=== PATIENT | male | born 1955 | race Caucasian/White ===

== ENCOUNTER → 2023-07-23 13:03 | Outpatient (CLI) | payer OTHER, SELFPAY ==
[2023-07-23 13:32] LABS: Add Manual Diff / Slide Review NO; Basophils Absolute Auto 0 /uL (0-100); Basophils Percent Auto 0.6 % (0-2); Eosinophils Absolute Auto 200 /uL (0-450); Hematocrit 41.2 % (41-53); Hemoglobin 13.8 g/dL (13.5-17.5); Lymphocytes Absolute Auto 1100 /uL (1100-4500); Lymphocytes Percent Auto 19.8 % (25-40); Mean Corpuscular HGB Conc 33.5 % (30-36); Mean Corpuscular Hemoglobin 29.2 PG (26-34); Mean Corpuscular Volume 87.1 fL (80-100); Monocytes Absolute Auto 300 /uL (0-900); Monocytes Percent Auto 5.9 % (3-14); Neutrophils Absolute Auto 3900 /uL (1500-7000); Neutrophils Percent Auto 70.7 % (50-75); Platelet Count 182 X10^3/uL (150-400); Red Blood Cell Count 4.73 X10^6/uL (4.5-5.9); Red Cell Distribution Width 14.2 % (11.6-14.8); White Blood Cell Count 5.5 X10^3/uL (4.5-11.0)
[2023-07-23 13:51] LABS: BUN Creatinine Ratio 14.2 (6-22); Blood Urea Nitrogen 16 mg/dL (9-20); Calcium 9.1 mg/dL (8.4-10.2); Carbon Dioxide 29 mmol/L (22-32); Chloride 106 mmol/L (98-107); Estimated Glomerular Filt Rate > 60 mL/min (>60); Glucose 129 mg/dL (80-110); HEMOLYSIS < 15 (0-50); Potassium 3.9 mmol/L (3.4-5.1); Sodium 142 mmol/L (137-145)
== END ==
PROVIDERS: PCP Family Medicine; Referring Provider Orthopaedic Surgery Orthopaedic Surgery of the Spine; Visit Provider Orthopaedic Surgery Orthopaedic Surgery of the Spine
DX: Z01.818 Encounter for other preprocedural examination (principal); Z01.812 Encounter for preprocedural laboratory examination
CPT/HCPCS: 36415; 80048; 85025; 93005

== ENCOUNTER 2023-08-12 07:55 | Day surgery (SDC) | payer OTHER, SELFPAY ==
[2023-08-03 08:41] VITALS: BMI 30.8
[2023-08-12] VITALS (17 sets, daily range): BP systolic 139–178; BP diastolic 76–103; PULSE 60–99; RESP 12–22; TEMP 36.2–36.7; O2SAT 94–100; BMI 31.6
--- NOTE | 2023-08-12 | DI.RAD.S_ITS ---
PROCEDURE: XR LUMBAR SPINE 2-3V INDICATIONS: L4-5 TLIF TECHNIQUE: Fluoroscopic guidance utilized for a interbody and posterior surgical fusion at L4-5. COMPARISON: None. FINDINGS: Fluoroscopic images submitted for a surgical fusion at L4-5. Please see operative note for further discussion. IMPRESSION: Fluoroscopic guidance. Dictated by: Ananth Henderson M.D. on 08/12/2023 at 13:23 Approved by: Ananth Henderson M.D. on 08/12/2023 at 13:23
[2023-08-12] MEDS: LACTATED RINGERS 1,000 ML 42 ML IV ×2 (08:53→10:49)
--- NOTE | 2023-08-12 09:08 | PM.PREOP ---
Pre-operative Note Interval Note History & Physical reviewed/Exam performed by Physician: Yes Changes to H&P: No
[2023-08-12] MEDS: CEFAZOLIN VIAL 3 GM in SODIUM CHLORIDE 0.9% 100 ML IV ×2 (10:11→18:24)
[2023-08-12] MEDS: BUPIVACAINE LIPOSOME 266 MG/20 ML VIAL INJ (10:19)
[2023-08-12] MEDS: BUPIVACAINE 0.25% (PF) 60 ML, EPINEPHrine 0.15 MG INJ (10:19)
--- NOTE | 2023-08-12 10:23 | SUR.OPER ---
Prone on spine table, head in foam head support, padded chest and pelvic supports, gel pad at knees, lower legs supported by pillows; nipples, genitalia and toes free of pressure, arms secured on foam padded arm boards at <90 degrees abduction. Tape over blanket at thigh secured to table.
--- NOTE | 2023-08-12 12:13 | PM.OP.1 ---
Operative Date/Time/Diagnoses Date of procedure: 08/12/23 Time of procedure: 10:00 Pre-op diagnosis: 1. L4-5 bilateral foraminal stenosis 2. Lumbar spondylosis with radiculopathy Post-op diagnosis: same Procedure & Clinicians Procedure: 1. L4-5 Postero-lateral and posterior interbody fusion 2. L4-5 interbody cage placement. 3. L4-5 decompressive laminectomy with bilateral facetecomies 4. L4-5 Posterior non-segmental instrumentation 5. [place] of bone marrow from iliac crest 6. Utilization of microsurgical technique and operating microscope Same procedure as scheduled: Yes Indications: Patient has been having chronic back pain and worsening lumbar radiculopathy. Patient failed multiple conservative management with worsening pain weakness and numbness in her lower extremity. Patient has been having difficulty performing activity of daily living. After discussing risks benefits of treatment options, patient elected proceed with surgery. Surgeon: Estefanía Judge Svp [employer] Partnerships: Bettina Smith Click Yes if Unassisted: No Anesthesia Type: General Operative Notes Closure Type: primary Specimen(s): none sent Prosthetic devices, grafts, tissues, transplants, or devices: Globus revolve screws, Rise cage Estimated Blood Loss (mL): 50 Blood products transfused: none Procedure in detail: Patient was seen in the preoperative area. Risks and benefits of the surgery was discussed with the patient. Informed consent was obtained from the patient and placed in the chart. Surgical site was marked. Patient was taken to the operative room. General anesthesia was administered. Prophylactic antibiotic was given to the patient less than 30 min before the incision was made. Patient was placed into a prone position on the Bobby table. Patient's back was then prepped and draped in the sterile fashion. Time-out was performed at this time. Using AP and lateral C-arm imaging the interval between L4-5 was identified and marked on patient's back. A 2 inch incision 2 in from midline was made on the right side first. The fascia was incised in line with skin incision. Globus MARS retractors was placed inside the incision and docked onto the L4 lamina. Using microsurgical technique and operating microscope, a for laminectomy and L4-5 facetectomy was performed using a Kerrison rongeur. The laminectomy and facetectomy was performed in order to decompress patient's cauda equina as well as the nerve roots exiting at the L4-5 level. Patient was found have severe neural foraminal stenosis due to enlarged facet joints bilaterally which was fully decompressed after the facetectomy and laminectomy was completed. The disc space at L4-5 was identified. And a total diskectomy was performed at L4-5 level. The endplates were decorticated using a rasp and shaver. The total diskectomy and decortication was performed at L4-5 level in order to to accomplish a L4-5 fusion. The local bone from the laminectomy and facetectomy was saved for local bone grafting. After the total diskectomy and decortication was completed, DBM bone graft material was combined with local bone that was harvested earlier. At this time, a separate skin is incision was made over the iliac crest. A Jamshidi needle was inserted into the iliac crest through a separate skin incision. 5 cc of bone marrow aspiration was obtained through the separate skin incision using a Jamshidi needle from the iliac crest. The bone marrow aspiration was combined with local bone and the DBM bone grafting material. The bone grafting material was placed into the L4-5 interbody space along with a expandable cage. The cage was expanded to its maximum height using the torque limiting screwdriver. At this time a mirror image incision was made on the left side. The fascia was incised in line with the skin incision. Globus MARS retractor was inserted and docked onto the L4-5 posterolateral gutter. Using the power drill, posterior-lateral decortication was performed at L4-5 level until bleeding cortical bone was identified. The remaining bone grafting material was placed into the L4-5 posterior lateral gutter he order to accomplish posterolateral fusion at the L4-5 level. Using the double C-arm technique, pedicle screws were placed into the L4-5 pedicles bilaterally. This was done by placing the Jamshidi needle into the pedicles, then placing the guidewires over the Jamshidi needle, and finally placing the cannulated screws over the guidewires bilaterally. After the pedicle screws were placed, 2 titanium rods was locked into the heads of the pedicle screws using locking caps and torque limiting screwdriver. After all the hardware was placed, and confirmed with AP and lateral C-arm imaging, the wound was then irrigated with sterile normal saline and packed with Ray-Byron gauze for 3 min to accomplish hemostasis. After the gauze was removed the deep fascia was closed with #1 Vicryl suture. The subcutaneous layer was closed with 2-0 Vicryl. The skin was closed with skin arias. Patient tolerated the procedure well. There were no complications. The Operation could not have been safely performed without compromising the technical result or length of the procedure, without the assistance of a skilled certified surgical tech/first assistant. The certified surgical tech/first assistant was medically necessary for proper positioning, retraction and manipulation of instruments, proper exposure, surgical preparation, and manipulation of tissue. Neuro monitoring was utilized throughout the entire procedure was stable throughout entire procedure with no complications. Complications: none Post-operative Condition: stable Disposition: PACU Plan for aftercare: Admit to inpatient hospital
[2023-08-12] MEDS: ACETAMINOPHEN IV 1,000 MG/100 ML VIAL 400 MG IV (12:21)
[2023-08-12] MEDS: fentaNYL 100 MCG/2 ML INJ IV ×2 (12:31→12:43)
[2023-08-12] MEDS: hydrOXYzine 50 MG/ML INJ 25 MG IM (12:32)
[2023-08-12] MEDS: OXYCODONE IR 5 MG TABLET PO (12:34)
[2023-08-12] MEDS: methocarbamoL 500 MG TABLET 1000 MG PO (12:47)
[2023-08-12] MEDS: OXYCODONE IR 10 MG TABLET PO ×3 (14:01→21:20)
[2023-08-12] MEDS: LACTATED RINGERS 1,000 ML 125 ML IV (14:03)
--- NOTE | 2023-08-12 16:39 | PC.NURSE ---
Patient arrived to room 211 at 1315 this afternoon, he is A&OX4, on RA. VSS, afebrile. Slightly hypertensive and initially reports pain 7/10 to back. He is repositioned and pain medication administered with good effect bringing pain level to 4/10 which he states is tolerable. He tolerates afternoon sandwhiches, juice and jello well this afternoon. He is able to void using the urinal. He has 5/5 strength to all extremities and states numbess to fingers and toes is at baseline due to Raynaud's. Continuous monitoring, spinal precautions, IVF LR@ 100ml/hr, call light in reach, SCD's in place, encouraged IS use, frequent rounding and continuous monitoring.
[2023-08-12] MEDS: HYDROMORPHONE 0.5 MG INJ IV ×2 (19:49→23:14)
[2023-08-12] MEDS: GABAPENTIN 300 MG CAPSULE PO (21:20)
[2023-08-12] MEDS: DOCUSATE 100 MG CAPSULE PO (21:20)
[2023-08-12] MEDS: SENNOSIDES 8.6 MG TABLET 17.2 MG PO (21:20)
[2023-08-13] MEDS: CEFAZOLIN VIAL 3 GM in SODIUM CHLORIDE 0.9% 100 ML IV (01:31)
[2023-08-13] MEDS: OXYCODONE IR 10 MG TABLET PO ×3 (01:47→08:40)
[2023-08-13 08:00] VITALS: BP 127/67; PULSE 63; RESP 16; TEMP 36.4; O2SAT 100
--- NOTE | 2023-08-13 08:03 | PM.DS.1 ---
History of Present Illness History of Present Illness Chief complaint: TLIF Narrative: Len is a pleasent 68-year-old male is postop day #1 s/p L4-5 Postero-lateral and posterior interbody fusion with cage placement, decompressive laminectomy and posterior non-segmental instrumentation. Today he reports he is doing well overall, mild back pain, moderate pain down his right leg but states it is well controlled with the oral oxycodone. Reports he has a good appetite and does not feel sedated any longer. Lives with and family at home who are willing and able to aid in his immediate postop recovery. Has been urinating with bedside urinal without issue, has not gotten out of bed to walk yet however. Denies fever, chills, chest pain, shortness of breath, nausea, vomiting. Operative Date/Time/Diagnoses Date of procedure: 08/12/23 Time of procedure: 10:00 Pre-op diagnosis: 1. L4-5 bilateral foraminal stenosis 2. Lumbar spondylosis with radiculopathy Post-op diagnosis: same Procedure & Clinicians Procedure: 1. L4-5 Postero-lateral and posterior interbody fusion 2. L4-5 interbody cage placement. 3. L4-5 decompressive laminectomy with bilateral facetecomies 4. L4-5 Posterior non-segmental instrumentation 5. [place] of bone marrow from iliac crest 6. Utilization of microsurgical technique and operating microscope Same procedure as scheduled: Yes Indications: Patient has been having chronic back pain and worsening lumbar radiculopathy. Patient failed multiple conservative management with worsening pain weakness and numbness in her lower extremity. Patient has been having difficulty performing activity of daily living. After discussing risks benefits of treatment options, patient elected proceed with surgery. Surgeon: Estefanía Judge Notch Grinder: Bettina Smith Click Yes if Unassisted: No Anesthesia Type: General Discharge Providers Provider Discharge Date: 08/13/23 Primary care physician: Erasto Reed MD Consults: 08/12/23 13:31 Consult to Occupational Therapy Evaluate & Treat Comment: Physician Instructions: Evaluate and treat Consult to Physical Therapy Evaluate & Treat Comment: Physician Instructions: Evaluate and Treat Discharge provider: Olivia Alex PA-C Summary Hospital Course Discharge Diagnosis: L4-5 bilateral foraminal stenosis with lumbar spondylosis with radiculopathy s/p TLIF Hospital Course: Uncomplicated hospital course Exam Vital Signs (past 8 hours): Oxygen Delivery Method Room Air Oxygen Flow Rate 0 Const General: cooperative, healthy appearing and comfortable Resp Effort & Inspection: normal respiratory effort and able to speak in complete sentences Cardio Rate: regular rate Skin Other: Alexx intact, incision site without drainage or surrounding erythema. Neuro General: patient alert, patient awake and patient oriented x3 Extrem Other: 5/5 strength with DF, PF, EHL. Calves soft and non-tender bilaterally. Sensation intact throughout bilateral lower extremities. Psych Appearance: grossly normal Mental Status: mental status grossly normal Speech and Movement: speech and movement normal [facility] Medical History (Updated 08/03/23 @ 09:14 by Isa Saldana RN) History of COVID-19 (07/2022) Hearing impaired Spinal stenosis HTN (hypertension) Surgical History (Updated 08/03/23 @ 09:10 by Isa Saldana RN) Hx of arthroscopy of right knee Hx of colonoscopy (2023) Hx of cholecystectomy (2021) Social History household members: spouse and children Smoking Status: Never smoker alcohol intake: current Discharge Assessment & Plan Assessment and Plan Assessment: Stable s/p L4-5 TLIF Plan of Treatment: Plan to work with PT this morning and pending PT evaluation d/c to home with family. 1) No deep bending or twisting at the waist. No lifting more than 10 pounds. 2) Continue multimodal pain management. Ice to the back as needed for pain, ice packs to the back as needed for muscle spasms. Rxs sent today (Oxy, APAP, colace, zofran). 3) Keep dressing clean and dry. No soaking the incision site and pulls or tubs. No topical ointments or creams to the incision site. 4) Follow-up at [facility] orthopedics in 2 weeks for a postop appointment and staple removal. Discharge Plan Discharge Plan Patient Disposition: Home Discharge orders & Medications Discharge Orders: Discharge (Order); Ordered 08/13/23 Ordered By: Olivia Alex Prescriptions: New acetaminophen 325 mg Tablet 650 mg PO Q6H PRN (Reason: Fever/Mild Pain (1-3)) Qty: 120 0RF docusate sodium 100 mg Capsule 100 mg PO BID Qty: 30 0RF ondansetron 4 mg Tablet,Disintegrating 4 mg sublingual Q4HR PRN (Reason: Nausea) Qty: 14 0RF oxycodone 5 mg tablet 5 mg PO Q4-6H PRN (Reason: pain) Qty: 40 0RF Rx Instructions: 1-2 tablets by mouth every 4-6 hours as needed for post-op pain Continued losartan 50 mg Tablet 50 mg PO DAILY naproxen sodium 220 mg Tablet 220 mg PO DAILY PRN (Reason: Pain) gabapentin 300 mg Capsule 300 mg PO QPM PRN (Reason: Nerve pain) zolpidem 10 mg Tablet 5 - 10 mg PO BEDTIME PRN (Reason: Sleep) Follow up/Referrals: Estefanía Judge MD [Physician] - 08/28/23 1:30 pm (Follow up w/ Chong Patten PA-C, at [facility] office in May.) Erasto Reed MD [Primary Care Provider] - Diet/Activity/Treatments Diet: Diet as Tolerated Activity: No deep bending or twisting at the waist. No lifting more than 10 pounds. Cold/Heat Therapy: Heating pad to low back as needed for pain. Skin/Wound/Dressing Care Report to your healthcare provider any signs of infection, such as:: chills, fever, night sweats, unusual drainage and unusual redness Dressing: May shower. Keep dressing as dry as possible. If dressing becomes wet or dirty, may remove and replace with clean, dry gauze. No bathing or otherwise soaking incisions. Do not apply any creams, lotions, or ointments to incisions. Visit Report/Discharge Packet Instructions: DI for Prescription Opioid Use, DI for Transforaminal Lumbar Interbody Fusion Stand Alone Forms: Patient Portal/API, Surgery Discharge Discharge Data Primary Care Provider: Erasto Reed Attending Provider: Estefanía Judge Quality VTE Deep Vein Thrombosis/Pulmonary Embolism Present on Admission: No
--- NOTE | 2023-08-13 08:40 | PT.IIE ---
Current Diagnoses Spinal stenosis, lumbosacral region (08/12/23) Radiculopathy, lumbar region (08/12/23) Surgery Performed Operation Date: 08/12/23 09:15 Actual Procedures p L4-5 TLIF - Estefanía Judge MD Surgical History (Last Updated 08/03/23 @ 09:10 by Isa Saldana, RN) Hx of arthroscopy of right knee Hx of cholecystectomy (2021) Hx of colonoscopy (2023) Medical History (Last Updated 08/03/23 @ 09:14 by Isa Saldana RN) Hearing impaired History of COVID-19 (07/2022) HTN (hypertension) Spinal stenosis Physical Therapy Inpatient Evaluation/Re-Eval M1 PT/OT-IP Prior Functional Status Start: 08/13/23 08:14 Freq: NEEDED Status: Active Protocol: Document 08/13/23 08:10 MB (Rec: 08/13/23 08:40 MB [id number]) Medical Review Prior Functional Status Medical History Reviewed Yes Diet/Fluid Consistency Regular Communication WNLs Mobility and Gait I Activities of Daily Living and IADL's I, 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 3 steps with two rails to enter home and then he doesn't have to do steps Home Environment Standard Height Toilet,Walk in Shower,Built-In Shower Seat Home Equipment Front Wheel Walker,Raised Toilet Seat Without Armrests, Grab Bars Near Toilet,Grab Bars In Shower Employment Status Self-Employed M2 PT-IP Current Condition Start: 08/13/23 08:14 Freq: NEEDED Status: Active Protocol: Document 08/13/23 08:10 MB (Rec: 08/13/23 08:40 MB [id number]) Physical Therapy Current Condition Current Condition Evaluation Date 08/13/23 Treatment Diagnosis s/p TLIF L4-5 M3 PT-IP Subjective Start: 08/13/23 08:14 Freq: NEEDED Status: Active Protocol: Document 08/13/23 08:10 MB (Rec: 08/13/23 08:40 MB [id number]) Subjective Physical Therapy Visit Type Type Initial Evaluation Visit Start Time 08:10 Visit Stop Time 08:30 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 He con't to have right thigh pain greater than back pain. Therapy Pain Assessment Pain When Pain Assessed At Rest Pain Present Pain Present Pain Reported Location Right thigh Intensity 5 Scale Used Numeric (0 - 10) Pain Management Techniques Distraction,Modification of Treatment,Re-positioning low back Intensity 4 Scale Used Numeric (0 - 10) Pain Management Techniques Distraction,Modification of Treatment,Re-positioning M4 PT-IP Mobility and Gait Start: 08/13/23 08:14 Freq: NEEDED Status: Active Protocol: Document 08/13/23 08:10 MB (Rec: 08/13/23 08:40 MB [id number]) PT-Bed Mobility Assessment Rolling Type of Rolling Log Rolling,Bilateral Level of Assist Independent Supine to Sit Supine to Sit Independent Sit to Supine Sit to Supine Independent Scooting Scooting to Edge of Bed Independent Scooting Up and Down in Bed Independent PT-Transfer Assessment Sit to and From Stand Sit to and from Stand Standby Assistance Equipment Transfer Assistive Device Gait Belt Orthotic/Prosthetic Devices or Brace: No Transfers Transfer Destination Bed,Chair Transfer Technique Ambulation Transfer Ability Level of Assist Standby Assistance Comments Mobility Comments Pt mobilizes well and states he doesn't think he needs the cane Gait Assessment Gait Gait Assistance Required: Standby Assistance Distance (Feet) 200 Able to Maintain Weight Bearing Status Yes During Gait Assistive Devices Assistive Device Gait Belt Orthotic/Prosthetic Devices or Brace: No Gait Deviations General Gait Pattern Antalgic,Decreased Stride Length Factors Limiting Gait Function Factors Limiting Gait Function Pain Comments Gait Comments Pt's gait is mildly slow and antaglic post-op with decreased step-through and step-length and it improves with longer gait distance Stair Climbing Assessment Evaluation Level of Assist On Stairs Standby Assistance Technique/Endurance Stair Climbing Direction Ascend and Descend Stair Climbing Technique Step Over Step Number of Steps Climbed 3 Query Text: Stair Climbing Set # Repetitions (reps) 1 Comments Stair Climbing Comments Using both rails PT-Balance Assessment Sitting Balance and Reactions Static Sitting Balance Ability Normal Dynamic Sitting Balance Ability Good Standing Balance and Reactions Static Standing Balance Ability Good Dynamic Standing Balance Ability Good Device Used None M5 PT-IP Objective Assessments Start: 08/13/23 08:14 Freq: NEEDED Status: Active Protocol: Document 08/13/23 08:10 MB (Rec: 08/13/23 08:40 [id number]) Orientation Orientation/Cognition Level of Alertness Alert Orientation Name,Age,Birthday,Month,Date, Year,Day of Week,Place, Situation Language Function Ability No Deficits Noted Safety Awareness Understands Safety Issues Memory Description No Deficits Noted Gross Range of Motion Upper Extremity ROM Assessment Within Functional Limits Lower Extremity ROM Assessment Within Functional Limits Strength Comments Strength Comments Defer UE MMT to OT and LE MMT deferred post-op and especially d/t c/o right thigh pain and strength is functional with mobility today and denies paresthesias M6 PT-IP Treatment Start: 08/13/23 08:14 Freq: NEEDED Status: Active Protocol: Document 08/13/23 08:10 MB (Rec: 08/13/23 08:40 [id number]) Physical Therapy Treatment Education Education Provided Precautions,Weight Bearing Status,Post-Op Packet,Safety M7 PT-IP Assessment and Plan Start: 08/13/23 08:14 Freq: NEEDED Status: Active Protocol: Document 08/13/23 08:10 MB (Rec: 08/13/23 08:40 [id number]) PT Summary Assessment and Plan Potential Rehabilitation Potential Good Status of Condition at Evaluation Evolving Summary Impairments Pain,Strength,Balance Progress Towards Goals Safe For Discharge Assessment Summary Pt is a pleasant 68 y/o male presenting with ongoing right thigh and back pain POD1 TLIF. He mobilizes well and is able to gait without AD, which he prefers. Since he has not been up a lot, he is currently SBA for staff. He ascends and descends 3 steps with two rails with SBA. Anticipate d/c home today. Frequency of Treatment Frequency Of Treatment Discharge Precautions Lumbar Precautions Log Roll,No Twisting,Limit Bending,Lifting Restriction of 10 lbs,Gait Belt above Incisional Area Weight Bearing Status Weight Bearing Status Weight Bear as Tolerated Recommendations To Nursing Amount of Assist Needed Standby Assistance Discharge Recommendations PT Discharge Recommendations Home with Assistance, Outpatient PT Transportation Needs at Discharge Private Vehicle
[2023-08-13 08:42] VITALS: BP 127/67; PULSE 63
[2023-08-13] MEDS: polyethylene glycoL 3350 17 GM POWD.PACK PO (08:42)
[2023-08-13] MEDS: LOSARTAN 50 MG TABLET PO (08:42)
[2023-08-13] MEDS: DOCUSATE 100 MG CAPSULE PO (08:42)
--- NOTE | 2023-08-13 09:06 | OT.IP.EVAL ---
Current Diagnoses Spinal stenosis, lumbosacral region (08/12/23) Radiculopathy, lumbar region (08/12/23) Surgery Performed Operation Date: 08/12/23 09:15 Actual Procedures p L4-5 TLIF - Estefanía Judge MD Past Medical History (Last Updated 08/03/23 @ 09:14 by Isa Saldana, RN) Hearing impaired History of COVID-19 (07/2022) HTN (hypertension) Spinal stenosis Surgical History (Last Updated 08/03/23 @ 09:10 by Isa Saldana, RN) Hx of arthroscopy of right knee Hx of cholecystectomy (2021) Hx of colonoscopy (2023) Occupational Therapy Inpatient Evaluation/Re-Eval M1 PT/OT-IP Prior Functional Status Start: 08/13/23 08:14 Freq: NEEDED Status: Discharge Protocol: Document 08/13/23 08:10 MB (Rec: 08/13/23 08:40 MB [id number]) Medical Review Prior Functional Status Medical History Reviewed Yes Diet/Fluid Consistency Regular Communication WNLs Mobility and Gait I Activities of Daily Living and IADL's I, 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 3 steps with two rails to enter home and then he doesn't have to do steps Home Environment Standard Height Toilet,Walk in Shower,Built-In Shower Seat Home Equipment Front Wheel Walker,Raised Toilet Seat Without Armrests, Grab Bars Near Toilet,Grab Bars In Shower Employment Status Self-Employed M1 PT/OT-IP Prior Functional Status Start: 08/13/23 14:13 Freq: NEEDED Status: Active Protocol: Document 08/13/23 14:14 CGR (Rec: 08/13/23 14:23 CGR [id number]) Medical Review Prior Functional Status Medical History Reviewed Yes Diet/Fluid Consistency Regular Communication Pt is an effective verbal communicator Mobility and Gait Ind at baseline without AD Activities of Daily Living and IADL's I, 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 3 steps with two rails to enter home and then he doesn't have to do steps Home Environment Standard Height Toilet,Walk in Shower,Built-In Shower Seat Home Equipment Front Wheel Walker,Raised Toilet Seat Without Armrests, Grab Bars Near Toilet,Grab Bars In Shower Employment Status Self-Employed M2 OT-IP Current Condition Start: 08/13/23 14:13 Freq: Status: Active Protocol: Document 08/13/23 14:14 CGR (Rec: 08/13/23 14:23 CGR [id number]) Occupational Therapy Current Condition Current Condition Evaluation Date 08/13/23 Treatment Diagnosis L4-5 TLIF Diagnosis Onset Date 08/12/23 Post Operative Precautions Lumbar Precautions Log Roll,No Twisting,Limit Bending,Lifting Restriction of 10 lbs,Gait Belt above Incisional Area M3 OT- IP Subjective and Pain Start: 08/13/23 14:13 Freq: Status: Active Protocol: Document 08/13/23 14:14 CGR (Rec: 08/13/23 14:23 [id number] OT- Subjective Occupational Therapy Visit Type Type Initial Evaluation Visit Start Time 08:29 Visit Stop Time 09:06 Notes Pt up in chair and appears in good spirits finishing breakfast. OT Pain Assessment Pain When Pain Assessed At Rest Pain Present Pain Present Pain Reported Location Right thigh Intensity 4 Scale Used Numeric (0 - 10) Management Techniques Modification of Treatment,Re- positioning,Timing of Activity with Medications M4 OT- IP ADL's Start: 08/13/23 14:13 Freq: Status: Active Protocol: Document 08/13/23 14:14 CGR (Rec: 08/13/23 14:23 CGR [id number][facility] OT [id number]-Llox-Voqmyig General Evaluation Self-Feeding Ability Independent Comments OT Self-Feeding Comments Pt was finishing breakfast when OT entered OT ADL-Grooming General Evaluation Grooming Ability Independent Comments OT Grooming Comments standing at sink OT ADL-Oral Care General Eval Oral Care Ability Independent Comments Oral Care Comments standing at sink OT ADL-Dressing General Eval Upper Body Dressing Ability Independent Lower Body Dressing Ability Standby Assistance Areas Needing Assistance Pull-Over Shirt,Underpants/ Brief,Pants/Shorts,Socks Assistive Devices Dressing Assistive Devices Executive Director Sheltered Workshop,Sock Aid Comments OT Dressing Comments Pt educated on use of wireless sales representative and sock aid for dressing. Pt performed after demonstration. OT ADL-Toileting General Evaluation Toileting Ability Independent Comments OT Toileting Comments seated on toielt for transfer assessment OT ADL-Bathing Comments OT Bathing Comments not performed M5 OT- IP IADL's Start: 08/13/23 14:13 Freq: Status: Active Protocol: Document 08/13/23 14:14 CGR (Rec: 08/13/23 14:23 CGR [id number]) OT-Instrumental Activities of Daily Living Deficits IADL Deficits Identified No Deficits Home Safety Awareness Awareness of Need for Assistance at Home Good Awareness Ability to Problem Solve Emergency Able to Problem Solve Situations Medication Management Medication Management No Deficits Identified Money Management Money Management No Deficits Identified Meal Preparation Meal Preparation Caregiver Provides Assist Coach Operator Coach Operator Caregiver Provides Assist Driving Driving Comments Pt states that he understands that he can't drive till off the pain medications. M6 OT- IP Functional Cognition Start: 08/13/23 14:13 Freq: Status: Active Protocol: Document 08/13/23 14:14 CGR (Rec: 08/13/23 14:23 CGR [id number]) Cognitive Factors Limiting Selfcare Function Cognitive Ability Level of Alertness Alert Patient Orientation Name,Age,Birthday,Month,Date, Year,Day of Week,Place, Situation Attention Span Ability Capable of Focused Attention, Capable of Sustained Attention Ability to Follow Commands Able to Follow Multi-Step Commands OT- Vision and Hearing OT- Hearing Assessment OT- Hearing Assessment Hearing Impaired,Use of Hearing Aids OT- Vision Assessment Visual Acuity Glasses For Reading Visual Attentiveness WFL Occular Pursuits WFL Visual Convergence WFL M7 OT- IP Mobility and Balance Start: 08/13/23 14:13 Freq: Status: Active Protocol: Document 08/13/23 14:14 CGR (Rec: 08/13/23 14:23 CGR [id number]) OT-Transfer Assessment Sit to and From Stand Sit to and from Stand Independent,Standby Assistance Transfers Transfer Ability Independent,Standby Assistance Technique Transfer Destination Chair,Toilet Transfer Technique Stand Step Pivot Devices Transfer Assistive Devices Gait Belt Comments Mobility Comments mobility around the room with GB only OT- Balance Assessment Sitting Balance and Reactions Static Sitting Balance Ability Normal Dynamic Sitting Balance Ability Normal M8 OT- IP Objective Assessments Start: 08/13/23 14:13 Freq: Status: Active Protocol: Document 08/13/23 14:14 CGR (Rec: 08/13/23 14:23 CGR [id number]) OT Gross Range of Motion Upper Extremity Range of Motion Assessment Within Functional Limits OT Strength Upper Extremity Strength Assessment Within Functional Limits Comments Strength Comments grossly 4=/5 OT- Coordination Assessment Upper Extremity Finger to Nose Test Within Functional Limits Finger Tapping Test Within Functional Limits OT-Muscle Tone Assessment Muscle Tone WNL Yes OT Sensation Assessment Edema Edema Absent M9 OT- IP Assessment and Plan Start: 08/13/23 14:13 Freq: Status: Active Protocol: Document 08/13/23 14:14 CGR (Rec: 08/13/23 14:23 CGR [id number]) OT Summary Assessment and Plan Potential Rehabilitation Potential Excellent Analytic Complexity at Evaluation Low Summary OT Impairments Pain,Dressing,Bathing,Activity Tolerance Progress Towards Goals Progressing Toward Goals Assessment Summary Pt presents as a low complexity evaluation s/p admit for L4-5 TLIF. Pt is ambulating without AD and states back precautions without difficulty. Pt participated in ADLs and educated on LB dressing then dressed for discharge. No further OT needs. Frequency of Treatment Frequency Of Treatment Discharge Discharge Recommendations OT Discharge Recommendations Home Transportation Needs at Discharge Private Vehicle
--- NOTE | 2023-08-13 09:06 | CM.DANOTE ---
Initial DCP Assessment Note Pt is a 68 yo male, resident of [place], now POD#[address] Judge PCP: Erasto Reed Payer: [employer] Reviewed chart, Therapy has cleared pt for return home w/family to assist and pt has planned for home, DC order from Ortho has already been initiated this morning. Patient is indp in all aspects at his baseline. 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 Health Care Proxy/Next of Kin Marcelina () Health Care Proxy Emergency Contact Name Lani (daughter) Emergency Contact No barriers identified at this time to patient's safe discharge home w/family to assist; close outpatient f/u recommended. CM team will plan to follow closely in case any DC needs or concerns arise. [facility] Morel Discharge Planning/Care Management CM Discharge Assessment Start: 08/13/23 09:02 Freq: Status: Active Protocol: Document 08/13/23 09:02 CIELO (Rec: 08/13/23 09:06 [id number]) Discharge Planning Assessment Assigned Government Program Manager BAY Licea DPOA/Assigned Designee Name Marcelina Layton, spouse Contact Information [phone] Advance Directives? Yes Advance Directives on File No History Provided By Patient,Medical Record Prior Living Arrangements House Household Members spouse,children Type of transporation used prior to Drives own vehicle admit Independent with ADL's Yes Is patient alert and oriented? Yes Patient/Family Preference OP PT Therapy Barriers to Discharge No Discharge Plan Home Transportation Arrangement Family Referrals Initiated None needed
--- NOTE | 2023-08-13 11:12 | PC.NURSE ---
Patient is A&OX4, VSS, afebrile on RA. He is evaluated by ortho PA at bedside this a.m. and able to get out of bed, ambulate around the nursing unit and to the bathroom without difficulty. Dressing changed to back. [place] c/d/i, without redness/swelling. He is cleared for discharge after working with PT/OT this a.m. He verbalizes understanding of medications, activity limitations, site care, s/sx of infection/complication as well as follow up post op appointment. He is escorted by RN to main entrance with all of his belongings to meet his for discharge home today in private vehicle at 1048 this a.m.
== END 2023-08-13 10:48 | disposition home or self-care (01) ==
LOC: OR 07:56 → AC 07:57
PROVIDERS: PCP Family Medicine; Referring Provider Orthopaedic Surgery Orthopaedic Surgery of the Spine; Visit Provider Orthopaedic Surgery Orthopaedic Surgery of the Spine
PROC: (CPT 22633; principal; 2023-08-12 09:15)
DX: M48.07 Spinal stenosis, lumbosacral region (principal); M54.16 Radiculopathy, lumbar region
CPT/HCPCS: 22633; 22840; 22853; 63052; 20939; 72100; 76000; 97161; 97165; 97535; C1713; C9290; J0136; J0171; J0690; J1100; J1170; J2250; J2405; J2704; J3010; J3410